=== PATIENT | male | born 1935 | race Caucasian/White ===

== ENCOUNTER 2016-11-29 19:35 | Inpatient (IN) | payer MEDICARE, BC ==
--- NOTE | 2016-11-29 20:16 | ER Document Report ---
ED Respiratory Problem - General Stated Complaint: SHORTNESS OF BREATH Mode of Arrival: Wheelchair Information source: Patient Notes: Patient presents complaining of shortness of breath for the past week. Patient states he has a history of multiple myeloma as well as MDS and was recently started on a new medication last week to decrease his iron levels. Patient states that he feels that his symptoms are related to this medication. Patient did call his doctor's office yesterday and was advised to stop the medication. Patient's last dose of the medicine was on . Patient denies any cough, chest pain, abdominal pain or back pain. Patient denies any fever. Patient does complain of some nausea with dry heaving. Patient denies a previous history of CHF. Patient has a sat monitor at home and reports that his oxygen saturation was 88% at home. Patient was given oxygen via nasal cannula by nurse , oxygen saturation now up to 95%. TRAVEL OUTSIDE OF THE [place] IN LAST 30 DAYS: No - HPI Patient complains to provider of: Short of breath. No: Chest pain, CHF Onset: Last week Duration: Worse/persistent Quality of pain: No pain Context: denies: Hx CHF, Recent immobilization, Smoker Associated symptoms: Ankle/leg swelling, Orthopnea, Short of breath. denies: Anxiety, Bloody cough, Chest pain/discomfort, Cough, Fever Similar symptoms previously: No Recently seen / treated by doctor: No - Related Data Allergies/Adverse Reactions: No Known Allergies Allergy (Unverified 08/08/11 04:03) Home Medications: Current Home Medications Furosemide [Lasix] 40 mg PO DAILY 11/30/16 [History] Tramadol HCl [Ultram 50 mg Tablet] 50 mg PO Q6HP PRN 11/30/16 [History] Past Medical History - General Information source: Patient - Social History Smoking Status: Never Smoker Frequency of alcohol use: None Drug Abuse: None Lives with: Spouse/Significant other Family History: Malignancy - Medical History Medical History: Other - MDS, multiple myeloma - Past Medical History Cardiac Medical History: Reports: Hx Hypertension Denies: Hx Congestive Heart Failure, Hx DVT, Hx Heart Attack, Hx Hypercholesterolemia, Hx Pulmonary Embolism Pulmonary Medical History: Reports: Hx Asthma, Hx Pneumonia, Hx Sleep Apnea, Hx Tuberculosis Neurological Medical History: Denies: Hx Seizures Endocrine Medical History: Reports: Hx Hypothyroidism. Denies: Hx Diabetes Mellitus Type 1, Hx Diabetes Mellitus Type 2, Hx Hyperthyroidism Malignancy Medical History: Reports Hx Skin Cancer - Status post excision of melanoma from his forehead., Reports Other - Multiple myeloma, MDS GI Medical History: Denies: Hx Cirrhosis, Hx Gastroesophageal Reflux Disease, Hx Hepatitis Musculoskeltal Medical History: Reports Hx Arthritis Skin Medical History: Denies Hx Eczema, Denies Hx Psoriasis Psychiatric Medical History: Denies: Hx Depression Infectious Medical History: Denies: Hx Hepatitis Past Surgical History: Reports: Other - Melanoma skin cancer removed - Immunizations Hx Diphtheria, Pertussis, Tetanus Vaccination: Yes - 05/10/05 Hx Pneumococcal Vaccination: 05/10/05 Review of Systems - Review of Systems Constitutional: No symptoms reported EENT: Other - Patient reports decreased hearing Cardiovascular: Orthopnea. denies: Chest pain Respiratory: Short of breath. denies: Cough Gastrointestinal: Nausea. denies: Abdominal pain, Diarrhea, Vomiting Genitourinary: No symptoms reported. denies: Dysuria, Flank pain Male Genitourinary: No symptoms reported Musculoskeletal: No symptoms reported. denies: Back pain, Neck pain Skin: No symptoms reported Hematologic/Lymphatic: No symptoms reported Neurological/Psychological: No symptoms reported Physical Exam - Vital signs Vitals: Pulse Ox 94 11/29/16 19:37 - General General appearance: Appears well, Alert In distress: None - HEENT Head: Normocephalic, Atraumatic Eyes: Normal Conjunctiva: Normal Nasal: Normal Mouth/Lips: Normal Mucous membranes: Normal Pharynx: Normal Neck: Normal, Supple. No: Lymphadenopathy - Respiratory Respiratory status: No respiratory distress Chest status: Nontender Breath sounds: Rales - bilat lower lobes Chest palpation: Normal - Cardiovascular Rhythm: Regular Heart sounds: S1 appreciated, S2 appreciated Murmur: No - Abdominal Inspection: Caput medussa - mild, Morbidly Obese, Other - ventral hernia Distension: Distended Bowel sounds: Normal Tenderness: Nontender Organomegaly: No organomegaly - Back Back: Normal, Nontender. No: CVA tenderness, Vertebra tenderness - Extremities General upper extremity: Normal inspection, Normal strength General lower extremity: Edema - 2+ bilat LE - Neurological Neuro grossly intact: Yes Cognition: Normal Abdifatah Coma Scale Eye Opening: Spontaneous [place] Coma Scale Verbal: Oriented Abdifatah Coma Scale Motor: Obeys Commands [place] Coma Scale Total: 15 - Psychological Associated symptoms: Normal affect, Normal mood - Skin Skin Temperature: Warm Skin Moisture: Dry Skin Color: Normal Course - Re-evaluation Re-evalutation: 11/29/16 21:[address] Gurpreet ambrocio patient presentation and management, recommends adding CTA and consultation with Dr. Bryan Consulted with Dr. Bryan who advises ordering iron panel as well as reticular site count and transfuse patient 2 units of packed red blood cells. Recommends giving patient Lasix 20 mg IV after his first unit of packed cells and advises that this patient will need admitted and states that the hospital skin consult him to evaluate the patient in the morning. 11/29/16 21:[address] Naylor who agrees to accept patient for admission. Advises ordering cefepime as well as vancomycin in addition to blood culture and urine cultures on patient. Discussed with Dr. Naylor the need for the order for the IV Lasix 20 mg after his first unit of packed red blood cells are infuse. - Vital Signs Vital signs: Temp Pulse Resp BP Pulse Ox 98.2 F 108 H 22 H 145/58 H 95 11/30/16 03:07 11/30/16 03:07 11/30/16 03:07 11/30/16 03:07 11/30/16 03:07 - Laboratory Result Diagrams: 11/29/16 19:50 11/29/16 19:50 Laboratory results interpreted by me: 11/29/16 11/29/16 11/29/16 19:50 19:50 19:50 WBC 19.3 H RBC 2.13 L Hgb 6.3 L Hct 18.5 L RDW 15.9 H Plt Count 26 L* Band Neutrophils % 14 H Lymphocytes % (Manual) 4 L Metamyelocytes % 3 H Immature Leukocytes % 1 H Abs Neuts (Manual) 16.6 H Absolute Retic Potassium 3.5 L Chloride 95 L BUN 37 H Glucose 144 H Magnesium 1.5 L Ferritin Creatine Kinase < 20 L NT-Pro-B Natriuret Pep 1130 H Albumin 3.1 L Vitamin B12 Urine Nitrite Ur Leukocyte Esterase Urine Ascorbic Acid Crossmatch 11/29/16 11/29/16 11/29/16 19:50 19:50 19:50 WBC RBC Hgb Hct RDW Plt Count Band Neutrophils % Lymphocytes % (Manual) Metamyelocytes % Immature Leukocytes % Abs Neuts (Manual) Absolute Retic 0.021 L Potassium Chloride BUN Glucose Magnesium Ferritin 4430.00 H Creatine Kinase NT-Pro-B Natriuret Pep Albumin Vitamin B12 > 1000.0 H Urine Nitrite Ur Leukocyte Esterase Urine Ascorbic Acid Crossmatch See Detail 11/29/16 20:18 WBC RBC Hgb Hct RDW Plt Count Band Neutrophils % Lymphocytes % (Manual) Metamyelocytes % Immature Leukocytes % Abs Neuts (Manual) Absolute Retic Potassium Chloride BUN Glucose Magnesium Ferritin Creatine Kinase NT-Pro-B Natriuret Pep Albumin Vitamin B12 Urine Nitrite POSITIVE H Ur Leukocyte Esterase MODERATE H Urine Ascorbic Acid 40 H Crossmatch Labs- Last Values WBC 19.3 10^3/uL (4.0-10.5) H 11/29/16 19:50 RBC 2.13 10^6/uL (4.35-5.55) L 11/29/16 19:50 Hgb 6.3 g/dL (13.5-17.0) L 11/29/16 19:50 Hct 18.5 % (37.9-51.0) L 11/29/16 19:50 MCV 87 fl (80-97) 11/29/16 19:50 MCH 29.7 pg (27.0-33.4) 11/29/16 19:50 MCHC 34.2 g/dL (32.0-36.0) 11/29/16 19:50 RDW 15.9 % (11.5-14.0) H 11/29/16 19:50 Plt Count 26 10^3/uL (150-450) L* 11/29/16 19:50 Total Counted 100 11/29/16 19:50 Seg Neutrophils % Not Reportable 11/29/16 19:50 Seg Neuts % (Manual) 69 % (42-78) 11/29/16 19:50 Band Neutrophils % 14 % (3-5) H 11/29/16 19:50 Lymphocytes % Not Reportable 11/29/16 19:50 Lymphocytes % (Manual) 4 % (13-45) L 11/29/16 19:50 Atypical Lymphs % 2 % (0) 11/29/16 19:50 Monocytes % Not Reportable 11/29/16 19:50 Monocytes % (Manual) 7 % (3-13) 11/29/16 19:50 Eosinophils % Not Reportable 11/29/16 19:50 Eosinophils % (Manual) 0 % (0-6) 11/29/16 19:50 Basophils % Not Reportable 11/29/16 19:50 Basophils % (Manual) 0 % (0-2) 11/29/16 19:50 Metamyelocytes % 3 % (0) H 11/29/16 19:50 Immature Leukocytes % 1 % (0) H 11/29/16 19:50 Absolute Neutrophils Not Reportable 11/29/16 19:50 Abs Neuts (Manual) 16.6 10^3/uL (1.7-8.2) H 11/29/16 19:50 Absolute Lymphocytes Not Reportable 11/29/16 19:50 Abs Lymphs (Manual) 1.2 10^3/uL (0.5-4.7) 11/29/16 19:50 Absolute Monocytes Not Reportable 11/29/16 19:50 Abs Monocytes (Manual) 1.4 10^3/uL (0.1-1.4) 11/29/16 19:50 Absolute Eosinophils Not Reportable 11/29/16 19:50 Absolute Eos (Manual) 0.0 10^3/uL (0.0-0.6) 11/29/16 19:50 Absolute Basophils Not Reportable 11/29/16 19:50 Abs Basophils (Manual) 0.0 10^3/uL (0.0-0.2) 11/29/16 19:50 Nucleated RBCs 1 /100 WBC (0) 11/29/16 19:50 Dohle Bodies PRESENT 11/29/16 19:50 Large Platelets PRESENT 11/29/16 19:50 Platelet Comment DECREASED 11/29/16 19:50 Polychromasia 1+ 11/29/16 19:50 Poikilocytosis SLIGHT 11/29/16 19:50 Anisocytosis SLIGHT 11/29/16 19:50 Tear Drop Cells SLIGHT 11/29/16 19:50 Ovalocytes 1+ 11/29/16 19:50 Retic Count (auto) 0.97 % (0.66-2.85) 11/29/16 19:50 Absolute Retic 0.021 10^6/uL (0.028-0.122) L 11/29/16 19:50 Sodium 138.8 mmol/L (137-145) 11/29/16 19:50 Potassium 3.5 mmol/L (3.6-5.0) L 11/29/16 19:50 Chloride 95 mmol/L (98-107) L 11/29/16 19:50 Carbon Dioxide 29 mmol/L (22-30) 11/29/16 19:50 Anion Gap 15 (5-19) 11/29/16 19:50 BUN 37 mg/dL (7-20) H 11/29/16 19:50 Creatinine 1.02 mg/dL (0.52-1.25) 11/29/16 19:50 Est GFR ( Amer) > 60 (>60) 11/29/16 19:50 Est GFR (Non-Af Amer) > 60 (>60) 11/29/16 19:50 Glucose 144 mg/dL (75-110) H 11/29/16 19:50 Lactic Acid 0.9 mmol/L (0.7-2.1) 11/29/16 21:55 Calcium 8.4 mg/dL (8.4-10.2) 11/29/16 19:50 Magnesium 1.5 mg/dL (1.6-2.3) L 11/29/16 19:50 Iron 146.5 ug/dL (49-181) 11/29/16 19:50 TIBC 304 ug/dL (250-450) 11/29/16 19:50 % Saturation 48 % 11/29/16 19:50 Ferritin 4430.00 ng/mL (17.9-464.0) H 11/29/16 19:50 Total Bilirubin 0.8 mg/dL (0.2-1.3) 11/29/16 19:50 Direct Bilirubin 0.3 mg/dL (0.0-0.4) 11/29/16 19:50 Indirect Bilirubin Not Reportable 11/29/16 19:50 Neonat Total Bilirubin Not Reportable 11/29/16 19:50 AST 36 U/L (17-59) 11/29/16 19:50 ALT 43 U/L (21-72) 11/29/16 19:50 Alkaline Phosphatase 83 U/L (38-126) 11/29/16 19:50 Creatine Kinase < 20 U/L (55-170) L 11/29/16 19:50 CK-MB (CK-2) < 0.22 ng/mL (<4.55) 11/29/16 19:50 Troponin I < 0.012 ng/mL 11/29/16 19:50 NT-Pro-B Natriuret Pep 1130 pg/mL (<450) H 11/29/16 19:50 Total Protein 7.1 g/dL (6.3-8.2) 11/29/16 19:50 Albumin 3.1 g/dL (3.5-5.0) L 11/29/16 19:50 Vitamin B12 > 1000.0 pg/mL (239-931) H 11/29/16 19:50 Folate > 20.00 ng/mL (>2.76) 11/29/16 19:50 Urine Color YELLOW 11/29/16 20:18 Urine Appearance SLIGHTLY-CLOUDY 11/29/16 20:18 Urine pH 5.0 (5.0-9.0) 11/29/16 20:18 Ur Specific [place] 1.015 11/29/16 20:18 Urine Protein NEGATIVE mg/dL (NEGATIVE) 11/29/16 20:18 Urine Glucose (UA) NEGATIVE mg/dL (NEGATIVE) 11/29/16 20:18 Urine Ketones NEGATIVE mg/dL (NEGATIVE) 11/29/16 20:18 Urine Blood NEGATIVE (NEGATIVE) 11/29/16 20:18 Urine Nitrite POSITIVE (NEGATIVE) H 11/29/16 20:18 Urine Bilirubin NEGATIVE (NEGATIVE) 11/29/16 20:18 Urine Urobilinogen NEGATIVE mg/dL (<2.0) 11/29/16 20:18 Ur Leukocyte Esterase MODERATE (NEGATIVE) H 11/29/16 20:18 Urine WBC (Auto) 43 /HPF 11/29/16 20:18 Urine RBC (Auto) 1 /HPF 11/29/16 20:18 Urine Bacteria (Auto) 3+ /HPF 11/29/16 20:18 Squamous Epi Cells Auto <1 /HPF 11/29/16 20:18 Urine Mucus (Auto) RARE /LPF 11/29/16 20:18 Urine Ascorbic Acid 40 (NEGATIVE) H 11/29/16 20:18 Blood Type A POSITIVE 11/29/16 19:50 Antibody Screen NEGATIVE 11/29/16 19:50 Crossmatch See Detail 11/29/16 19:50 - Diagnostic Test Radiology reviewed: Reports reviewed Discharge - Discharge Clinical Impression: MDS (myelodysplastic syndrome), Multiple myeloma, Thrombocytopenia Anemia Qualifiers: Anemia type: bone marrow failure Bone marrow failure anemia type: other bone marrow failure Qualified Code(s): D61.89 - Other specified aplastic anemias and other bone marrow failure syndromes Dyspnea Qualifiers: Dyspnea type: unspecified Qualified Code(s): R06.00 - Dyspnea, unspecified Disposition: ADMITTED INPATIENT Admitting Provider: Hospitalist Unit Admitted: [facility]
[2016-11-29 20:19] LABS: HEMATOCRIT 18.5 % (37.9-51.0); HGB HCT DIFFERENCE 0.4; MEAN CORPUSCULAR HEMOGLOBIN 29.7 pg (27.0-33.4); MEAN CORPUSCULAR HGB CONC 34.2 g/dL (32.0-36.0); MEAN CORPUSCULAR VOLUME 87 fl (80-97); RED BLOOD COUNT 2.13 10^6/uL (4.35-5.55); RED CELL DISTRIBUTION WIDTH 15.9 % (11.5-14.0); WHITE BLOOD COUNT 19.3 10^3/uL (4.0-10.5)
[2016-11-29 20:30] LABS: ALANINE AMINOTRANSFERASE 43 U/L (21-72); ALBUMIN 3.1 g/dL (3.5-5.0); ALKALINE PHOSPHATASE 83 U/L (38-126); ANION GAP 15 (5-19); ASPARTATE AMINO TRANSFERASE 36 U/L (17-59); BILIRUBIN,DIRECT 0.3 mg/dL (0.0-0.4); BILIRUBIN,TOTAL 0.8 mg/dL (0.2-1.3); BLOOD UREA NITROGEN 37 mg/dL (7-20); CALCIUM 8.4 mg/dL (8.4-10.2); CARBON DIOXIDE 29 mmol/L (22-30); CHLORIDE 95 mmol/L (98-107); CREATININE RESULT 1.02 mg/dL (0.52-1.25); GLUCOSE 144 mg/dL (75-110); MAGNESIUM 1.5 mg/dL (1.6-2.3); POTASSIUM 3.5 mmol/L (3.6-5.0); SODIUM 138.8 mmol/L (137-145); TOTAL PROTEIN 7.1 g/dL (6.3-8.2)
[2016-11-29 20:33] LABS: CREATINE KINASE < 20 U/L (55-170)
[2016-11-29 20:35] LABS: HEMOGLOBIN 6.3 g/dL (13.5-17.0)
[2016-11-29 20:39] LABS: BASOPHILS % (MANUAL) 0 % (0-2); EOSINOPHILS % (MANUAL) 0 % (0-6); LYMPHOCYTES % (MANUAL) 4 % (13-45); NUCLEATED RED BLOOD CELLS 1 /100 WBC (0); TOTAL CELLS COUNTED 100
[2016-11-29 20:43] LABS: CREATINE KINASE MB < 0.22 ng/mL (<4.55); TROPONIN I < 0.012 ng/mL
[2016-11-29 20:46] LABS: APPEARANCE,URINE SLIGHTLY-CLOUDY; BILIRUBIN,URINE NEGATIVE (NEGATIVE); GLUCOSE, URINE NEGATIVE (NEGATIVE); KETONES,URINE NEGATIVE (NEGATIVE); LEUKOCYTE ESTERASE,URINE MODERATE (NEGATIVE); NITRITE,URINE POSITIVE (NEGATIVE); PROTEIN,URINE NEGATIVE (NEGATIVE); URINE SPECIFIC GRAVITY 1.015; UROBILINOGEN,URINE NEGATIVE mg/dL (<2.0)
[2016-11-29 20:47] LABS: ANISOCYTOSIS SLIGHT; OVALOCYTES 1+; POIKILOCYTOSIS SLIGHT; POLYCHROMASIA 1+; TEAR DROP CELLS SLIGHT
[2016-11-29 20:49] LABS: BAND NEUTROPHILS % (MANUAL) 14 % (3-5)
[2016-11-29] MEDS ORDERED: NORMAL SALINE 250 ML IV PRN (21:10)
[2016-11-29] MEDS ORDERED: MAGNESIUM SULFATE/D5W 100 ML IV ONE (21:11)
[2016-11-29] MEDS ORDERED: VANCOMYCIN HCL INJ 1000 MG VIAL IV ONE (21:20)
[2016-11-29] MEDS ORDERED: CEFEPIME 2 GM/D5W RTU 50 ML IV ONE (21:21)
[2016-11-29 22:38] LABS: FOLATE > 20.00 ng/mL (>2.76)
[2016-11-29] MEDS ORDERED: ACETAMINOPHEN 325 MG TABLET PO PRN (23:00)
[2016-11-29] MEDS ORDERED: IPRATROPIUM/ALBUTEROL 0.5-2.5 MG/3 ML AMPUL NEB PRN (23:00)
[2016-11-29] MEDS ORDERED: POTASSIUM CHLORIDE 20 MEQ/15 ML UDCUP PO ONE (23:05)
[2016-11-29] MEDS ORDERED: VANCOMYCIN HCL 0 MG in DEXTROSE 5%-WATER 250 ML IV NR (23:15)
--- NOTE | 2016-11-29 23:32 | PDOC H&P ---
History of Present Illness Admission Date/PCP: 11/29/16 21:32 STEFAN RANGEL MD Heme/Onc Dr. Timothy Simon, DAREN Uro Dr. Maldonado Patient complains of: SOB History of Present Illness: ROSMERY PARRISH is a 81 year old male, with a fairly complicated medical history, who presents to the emergency room for evaluation of above complaint. Shortness of breath worse with much of any activity. Patient has been discussed with emergency room nurse practitioner who evaluated the patient. Patient has underlying asthma, not COPD, multiple myeloma, myelofibrosis, and myelodysplastic syndrome, started approximately a week ago on medication to prevent iron overload. Patient receives weekly blood transfusions. According to the nurse practitioner who discussed the patient with Dr. Bryan, our on- call oncologist, likely this medication as a source of his shortness of breath. According to patient, this new medication was stopped after only a dose or 2. He's had nausea and occasional dry heaves, but no fever or chills, cough, diarrhea or dysuria, chest or abdominal pain. Per nurse practitioner discussion with Dr. Bryan, orders have been placed to transfuse 2 units of packed cells, with 20 mg of IV Lasix after the first unit of packed cells.. Laboratory results are listed in [email or web address] and are reviewed. X-ray summary results are listed below, with full report(s) reviewed. . EKG reviewed. And compared to a tracing from June 15 of last year. Social history/personal habits: . Retired. Has children. No use of alcohol tobacco or illicit drugs. Allergies/adverse reactions NKDA. Home medications Home medications initially autopopulated into [employer] may not accurately reflect patient's true medications, dosages, and/or frequencies. fire control technician to reconcile medications. Unfortunately, patient uncertain of all his medications/dosages/frequencies. REVIEW OF SYSTEMS: Constitutional: No fever or chills. Eyes: Wears glasses. ENT: No swallowing problems or complaints. Partial hearing loss. Pulmonary: See history and present illness. Cardiovascular: No current complaints, including chest pain. Gastrointestinal: See history and present illness. Skin: No current complaints, including rashes. Hematologic: Easy bruising. Neurologic: No current complaints, including numbness or tingling. Musculoskeletal: Joint pain from arthritis. Psychiatric: No current complaints, including anxiety or depression. Anxiety depression; denies suicidal or homicidal ideation. Endocrine: No current complaints, including polyuria. Genitourinary: No current complaints, including dysuria. PHYSICAL EXAMINATION: 5 feet 11 inches tall. 136.1 kg. BMI 41.8 kg/m. Blood pressure 126/60. Pulse 94 and regular. 98% saturation on 3 L oxygen per nasal cannula of note, patient has home O2 only for CPAP, which he wears at night. Respirations are 21 and unlabored. Temperature is not recorded on the chart; skin feels normothermic. Morbidly obese otherwise well-developed male who appears perhaps a bit younger than his stated age. Pleasant awake alert and cooperative. No obvious distress other than perhaps mildly anxious. No agitation. is present at his side; patient approves. Skin is warm and dry. No grossly obvious evidence of rash in areas of skin examined. No subcutaneous nodules palpated. ENT: Perhaps Mildly hard of hearing to normal conversation. Tongue midline on protrusion pink and slightly tacky. Eyes: No scleral icterus. Pupils equal and reactive to light at 4 mm. pale conjunctivae. Neck is supple and nontender to gentle active range of motion and palpation. Midline trachea. No palpable thyroid nodule mass enlargement or tenderness. Lymphatic: No palpable cervical or clavicular nodes. Neck and lymphatic exams limited by patient body habitus. Psychiatric: Reasonable insight into acute and chronic medical issues. Oriented to time location and why here. Lungs: Auscultation reveals clear and equal breath sounds bilaterally. No use of accessory respiratory muscles. Cardiovascular: Heart regular rate and rhythm, without gallop murmur or rub. No carotid or abdominal aortic bruits. Mild bilateral symmetric slightly pitting ankle and pedal edema. Faintly palpable dorsalis pedis pulses. Abdomen: soft, obese, nontender with positive bowel sounds. Unable to adequately evaluate abdomen for masses or organomegaly due to body habitus. Extremities: Feet are warm and dry. No calf tenderness to compression. No grossly obvious visual evidence of calf swelling. Gentle manipulation of lower extremities fails to reveal any obvious evidence of injury or instability to knees hips or ankles. Neurologic: Moves upper extremities grossly normally. Patellar reflexes absent. Absent Babinski. Light touch is intact at feet. Dorsiflexion and plantarflexion of feet 5 / 5 and symmetric. Past Medical History Cardiac Medical History: Reports: Hypertension Denies: Congestive Heart Failure, DVT, Myocardial Infarction, Hyperlipidema, Pulmonary Embolism Pulmonary Medical History: Reports: Asthma, Pneumonia, Sleep Apnea - 4 L oxygen ; variable pressure setting, per patient., Tuberculosis - History of Denies: Chronic Obstructive Pulmonary Disease (COPD) EENT Medical History: Reports: Eyes - Glasses, Ears - Partial hearing loss Denies: Throat Neurological Medical History: Denies: Hemorrhagic CVA, Ischemic CVA, Seizures Endocrine Medical History: Reports: Hypothyroidism Denies: Diabetes Mellitus Type 1, Diabetes Mellitus Type 2, Hyperthyroidism Renal/ Medical History: Reports: Other - Prostate cancer, status post external radiation treatment of same. Denies: Chronic Kidney Disease Malignancy Medical History: Reports: Skin Cancer - Status post excision of melanoma from his forehead., Other - Prostate cancer, status post external radiation treatment of same. GI Medical History: Denies: Cirrhosis, Gastroesophageal Reflux Disease, Hepatitis, Peptic Ulcer Disease Musculoskeltal Medical History: Reports: Arthritis Skin Medical History: Denies: Eczema, Psoriasis Psychiatric Medical History: Denies: Alcohol Dependency, Depression, General Anxiety Disorder, Substance Abuse, Tobacco Dependency Hematology: Reports: Anemia Infectious Medical History: Denies: Clostridium Difficile, Hepatitis B, Hepatitis C, Methicillin- Resistant Staph Aureus Past Surgical History Past Surgical History: Reports: Other - Excision of melanoma from his forehead Social History Information Source: Patient, Emergency Med Personnel, [facility] Records Lives with: Spouse/Significant other Smoking Status: Unknown if Ever Smoked Frequency of Alcohol Use: None Hx Recreational Drug Use: No Drugs: None Hx Prescription Drug Abuse: No - Advance Directive Resuscitation Status: Do Not Resuscitate - Implications of DO NOT RESUSCITATE/ DO NOT INTUBATE status discussed with patient. Discussed in layperson's terms. Implications understood. Patient is the health care decision maker. Patient conversation is lucid and appropriate. Patient desires DO NOT RESUSCITATE/DO NOT INTUBATE status. Will honor patient wishes. Surrogate healthcare decision maker:: Family History Family History: Malignancy Parental Family History Reviewed: Yes - mother of congestive heart failure ; father of stomach and colon cancer Children Family History Reviewed: Yes - Healthy Sibling(s) Family History Reviewed.: Yes - Healthy Medication/Allergy Home Medications: Beta-Carotene(A) W-C & E [E-400 C-500 & Beta Carotene] 1 each PO DAILY 08/08/11 Ca Carbonate/Vitamin D2/Soyb [Calcium 600 with Soy Caplet] 1 each PO DAILY 08/08 Cyclobenzaprine HCl [Flexeril 10 mg Tablet] 10 mg PO TID PRN 08/08/11 Finasteride 5 mg PO DAILY 08/08/11 Glucosamine HCl/MSM [Glucosamine MSM Liquid] 480 ml PO DAILY 08/08/11 Latanoprost [Xalatan 0.005% Oph Soln 2.5 ml] 1 drop QHS 08/08/11 Levothyroxine Sodium [Synthroid 0.1 mg Tablet] 100 mcg PO DAILY 08/08/11 Metoclopramide HCl 5 mg PO TID 08/08/11 Metoprolol Tartrate [Lopressor 25 mg Tablet] 25 mg PO BID 08/08/11 Multivitamins W-Minerals/Lut [Mature Adult Century Tablet] 1 each PO DAILY 08/08 [place]-3 Fatty Acids/Fish Oil [[place] 3 Fish Oil Softgel] 1 each PO DAILY Omeprazole [Prilosec 10 mg Capsule] 10 mg PO DAILY 08/08/11 Spironolact/Hydrochlorothiazid [Aldactazide 25-25 Tablet] 1 each PO DAILY Tamsulosin HCl [Flomax 0.4 mg Cap.sr] 0.4 mg PO QHS 08/08/11 Timolol Maleate [Timoptic 0.5% Oph Soln 5 ml] 1 drop BID 08/08/11 Verapamil HCl 240 mg PO BID 08/08/11 Brimonidine Tartrate [Alphagan 0.2% Oph Soln 5 ml] 1 applic OU BID 06/15/16 Fluticasone/Vilanterol [Breo Ellipta 200-25 Mcg INH] 1 dose IH DAILY 06/15/16 Prednisone 10 mg PO Q48HS 06/15/16 Acetaminophen [Tylenol 325 mg Tablet] 650 mg PO Q4HP PRN tablet 06/16/16 Levofloxacin [Levaquin 750 mg Tablet] 750 mg PO DAILY #5 tablet 06/16/16 Allergies/Adverse Reactions: No Known Allergies Allergy (Unverified 08/08/11 04:03) Physical Exam Vital Signs: Temp Pulse Resp BP Pulse Ox 18 125/76 94 11/29/16 20:00 11/29/16 19:43 11/29/16 20:00 Intake & Output 11/28/16 11/29/16 11/30/16 00:59 00:59 00:59 Weight 136.078 kg Results Laboratory Results: 11/29/16 21:55 Lactic Acid 0.9 Impressions: Chest X-Ray 11/29/16 19:37 IMPRESSION: NO ACUTE RADIOGRAPHIC FINDING IN THE CHEST. NO SIGNIFICANT CHANGE FROM PRIOR STUDY. Chest/Abdomen CTA 11/29/16 21:04 IMPRESSION: NO PULMONARY EMBOLI. NO ACUTE AORTIC INJURY. TRACE LEFT PLEURAL EFFUSION. MARKED SPLENOMEGALY WITH AREAS OF LOW ATTENUATION CONCERNING FOR INFARCTION. CORRELATE WITH PHYSICAL EXAM FOR EVIDENCE OF LEFT UPPER QUADRANT PAIN. Assessment & Plan - Diagnosis (1) Abnormal CT of the abdomen Is this a current diagnosis for this admission?: YesPlan: Related to spleen. Abdomen completely nontender to palpation; patient also denies any abdominal pain. Surgery consult. (2) Dyspnea Qualifiers: Dyspnea type: unspecified Qualified Code(s): R06.00 - Dyspnea, unspecified Is this a current diagnosis for this admission?: YesPlan: Reportedly secondary to medication recently started for iron overload, which has been stopped. (3) Hypokalemia Is this a current diagnosis for this admission?: YesPlan: Potassium replacement with follow-up chemistry. (4) Hypomagnesemia Is this a current diagnosis for this admission?: YesPlan: Magnesium replacement with follow-up chemistry. (5) UTI (urinary tract infection) Qualifiers: Urinary tract infection type: site unspecified Is this a current diagnosis for this admission?: YesPlan: Blood and urine cultures. Cefepime and intravenous vancomycin. Pharmacy to assist with vancomycin dosing. I have strongly encouraged patient not to get out of bed without notifying staff , to avoid a fall with injury. Knee high SCDs for DVT prophylaxis; with underlying thrombocytopenia, will forego Lovenox or heparin at this point in time. Impression and plans were discussed with patient, , both of whom concur. Time spent in evaluation and management of patient: 62 minutes. (6) Anemia Qualifiers: Anemia type: other cause Other causes of anemia: chronic disease, neoplastic Qualified Code(s): D63.0 - Anemia in neoplastic disease Is this a current diagnosis for this admission?: YesPlan: To receive 2 units packed cells. Hematology consult. (7) Thrombocytopenia Is this a current diagnosis for this admission?: YesPlan: Follow-up CBC with differential. Hematology consult. (8) DNR (do not resuscitate) Is this a current diagnosis for this admission?: Yes (9) Hypothyroid Qualifiers: Hypothyroidism type: unspecified Qualified Code(s): E03.9 - Hypothyroidism, unspecified Is this a current diagnosis for this admission?: YesPlan: TSH pending. Resume home medications as appropriate once these have been determined and reviewed. (10) MDS (myelodysplastic syndrome) Is this a current diagnosis for this admission?: Yes (11) Multiple myeloma Qualifiers: Multiple myeloma remission status: unspecified Qualified Code(s): C90.00 - Multiple myeloma not having achieved remission Is this a current diagnosis for this admission?: Yes (12) Myelofibrosis Is this a current diagnosis for this admission?: Yes (13) XIN on CPAP Is this a current diagnosis for this admission?: YesPlan: CPAP daily at bedtime. - Inpatient Certification Based on my medical assessment, after consideration of the patient's comorbidities, presenting symptoms, or acuity I expect that the services needed warrant INPATIENT care.: Yes I certify that my determination is in accordance with my understanding of Medicare's requirements for reasonable and necessary INPATIENT services [42 CFR 412.3e].: Yes Medical Necessity: Significant Comorbidiites Make Outpatient Treatment Too Risky , Need Close Monitoring Due to Risk of Patient Decompensation, Need for IV Antibiotics, Risk of Complication if Not Cared For in Hospital Post Hospital Care: D/C or Transfer Summary
[2016-11-30] MEDS ORDERED: VANCOMYCIN HCL INJ 1000 MG VIAL IV PRN (00:21)
[2016-11-30] MEDS ORDERED: VANCOMYCIN HCL 2,000 MG in DEXTROSE 5%-WATER 500 ML IV ONE (01:00)
[2016-11-30] MEDS ORDERED: MAGNESIUM SULFATE/D5W 1 GM/100 ML RTUPB IV ONE (01:30)
[2016-11-30] MEDS ORDERED: VANCOMYCIN HCL INJ 1000 MG VIAL ONE (01:41)
[2016-11-30] MEDS ORDERED: TRAMADOL HCL 50 MG TABLET PO PRN (07:41)
[2016-11-30 09:32] VITALS: BP 132/66
[2016-11-30] MEDS ORDERED: BRIMONIDINE TARTRATE 0.2% OPH SOLN 5 ML OU SCH ×2 (10:00→18:00)
[2016-11-30] MEDS ORDERED: DOCUSATE SODIUM 100 MG CAPSULE PO SCH (10:00)
[2016-11-30] MEDS ORDERED: VERAPAMIL HCL 240 MG TABLET.SA PO SCH ×2 (10:00→22:00)
[2016-11-30] MEDS ORDERED: FUROSEMIDE 40 MG TABLET PO SCH (10:00)
[2016-11-30] MEDS ORDERED: CEFEPIME HCL 2 GM in DEXTROSE 5%-WATER 50 ML IV SCH (10:00)
[2016-11-30] MEDS ORDERED: FLUTICASONE IH SCH (10:00)
[2016-11-30] MEDS ORDERED: VILANTEROL IH SCH (10:00)
[2016-11-30] MEDS ORDERED: LEVOTHYROXINE SODIUM 0.1 MG TABLET PO SCH (10:00)
[2016-11-30] MEDS ORDERED: CEFEPIME 2 GM/D5W RTU 50 ML IV SCH (10:00)
[2016-11-30] MEDS ORDERED: FINASTERIDE 5 MG TABLET PO SCH (10:00)
[2016-11-30] MEDS ORDERED: TIMOLOL MALEATE 0.5% OPH SOLN 5 ML OU SCH (10:00)
[2016-11-30] MEDS ORDERED: METOCLOPRAMIDE HCL 5 MG PO SCH (10:00)
[2016-11-30 10:06] LABS: HEMATOCRIT 22.3 % (37.9-51.0); HGB HCT DIFFERENCE 0.8; MEAN CORPUSCULAR HEMOGLOBIN 30.5 pg (27.0-33.4); MEAN CORPUSCULAR HGB CONC 34.6 g/dL (32.0-36.0); MEAN CORPUSCULAR VOLUME 88 fl (80-97); RED BLOOD COUNT 2.53 10^6/uL (4.35-5.55); RED CELL DISTRIBUTION WIDTH 15.5 % (11.5-14.0); WHITE BLOOD COUNT 20.3 10^3/uL (4.0-10.5)
[2016-11-30 10:10] LABS: ANION GAP 11 (5-19); BLOOD UREA NITROGEN 28 mg/dL (7-20); CALCIUM 8.4 mg/dL (8.4-10.2); CARBON DIOXIDE 31 mmol/L (22-30); CHLORIDE 99 mmol/L (98-107); GLUCOSE 197 mg/dL (75-110); POTASSIUM 3.5 mmol/L (3.6-5.0); SODIUM 140.5 mmol/L (137-145)
[2016-11-30 10:17] LABS: BAND NEUTROPHILS % (MANUAL) 13 % (3-5); BASOPHILS % (MANUAL) 0 % (0-2); EOSINOPHILS % (MANUAL) 0 % (0-6); LYMPHOCYTES % (MANUAL) 5 % (13-45); NUCLEATED RED BLOOD CELLS 1 /100 WBC (0); TOTAL CELLS COUNTED 100
[2016-11-30 10:21] LABS: ANISOCYTOSIS SLIGHT; HYPOCHROMASIA SLIGHT; POLYCHROMASIA SLIGHT; TOXIC GRANULATION SLIGHT
[2016-11-30 10:24] LABS: HEMOGLOBIN 7.7 g/dL (13.5-17.0)
[2016-11-30] MEDS: METOCLOPRAMIDE HCL 10 MG TABLET PO SCH ×2 (10:36→15:05)
--- NOTE | 2016-11-30 10:41 | PDOC CONSULTATION ---
Consultation Consult Date: 11/30/16 Attending physician:: JOSE RAND Consult reason:: Pancytopenia, CP, fatigue History of Present Illness Admission Date/PCP: 11/29/16 23:00 STEFAN RANGEL MD Patient complains of: CP, fatigue History of Present Illness: 81-year-old male with known history of multiple myeloma as well as MDS. He has required chronic transfusions, on average she is getting 1-2 units of packed red blood cells per week. His hemoglobin ranges usually in the 7-8 range, platelets usually range in the 20-30 range. He has been getting most of his transfusions and [place]. He has been hospitalized here in the past as well. Recently he began taking a drug for iron overload called Jadenu, he was taking 5 tablets per day. He had been on that for about 4 days and soon after taking it he began having severe nausea as well as shortness of breath and chest pain. Upon presentation here he had hemoglobin in the 6 range platelets 26. He was admitted for blood transfusion. He's feeling much better today. He is seeing Dr. Mcneal, hematology oncology and [place], they have a [place] office as well and he is to be seen in that office tomorrow. Past Medical History Cardiac Medical History: Reports: Hypertension Denies: Congestive Heart Failure, DVT, Myocardial Infarction, Hyperlipidema, Pulmonary Embolism Pulmonary Medical History: Reports: Asthma, Pneumonia, Sleep Apnea, Tuberculosis Denies: Chronic Obstructive Pulmonary Disease (COPD) EENT Medical History: Reports: Eyes - Glasses, Ears - Partial hearing loss Denies: Throat Neurological Medical History: Denies: Hemorrhagic CVA, Ischemic CVA, Seizures Endocrine Medical History: Reports: Hypothyroidism Denies: Diabetes Mellitus Type 1, Diabetes Mellitus Type 2, Hyperthyroidism Renal/ Medical History: Reports: Other - Prostate cancer, status post external radiation treatment of same. Denies: Chronic Kidney Disease Malignancy Medical History: Reports: Skin Cancer - Status post excision of melanoma from his forehead., Other - Multiple myeloma, MDS GI Medical History: Denies: Cirrhosis, Gastroesophageal Reflux Disease, Hepatitis, Peptic Ulcer Disease Musculoskeltal Medical History: Reports: Arthritis Skin Medical History: Denies: Eczema, Psoriasis Psychiatric Medical History: Denies: Alcohol Dependency, Depression, General Anxiety Disorder, Substance Abuse, Tobacco Dependency Hematology: Reports: Anemia Infectious Medical History: Denies: Clostridium Difficile, Hepatitis B, Hepatitis C, Methicillin- Resistant Staph Aureus Past Surgical History Past Surgical History: Reports: Other - Melanoma skin cancer removed Social History Lives with: Spouse/Significant other Smoking Status: Never Smoker Frequency of Alcohol Use: None Hx Recreational Drug Use: No Drugs: None Hx Prescription Drug Abuse: No - Advance Directive Resuscitation Status: Do Not Resuscitate Family History Family History: Malignancy Parental Family History Reviewed: Yes Children Family History Reviewed: Yes Sibling(s) Family History Reviewed.: Yes Medication/Allergy Home Medications: Ca Carbonate/Vitamin D2/Soyb [Calcium 600 with Soy Caplet] 1 each PO DAILY 08/08 Cyclobenzaprine HCl [Flexeril 10 mg Tablet] 10 mg PO TID PRN 08/08/11 Finasteride 5 mg PO DAILY 08/08/11 Glucosamine HCl/MSM [Glucosamine MSM Liquid] 480 ml PO DAILY 08/08/11 Latanoprost [Xalatan 0.005% Oph Soln 2.5 ml] 1 drop QHS 08/08/11 Levothyroxine Sodium [Synthroid 0.1 mg Tablet] 100 mcg PO DAILY 08/08/11 Metoclopramide HCl 5 mg PO TID 08/08/11 Metoprolol Tartrate [Lopressor 25 mg Tablet] 25 mg PO BID 08/08/11 Multivitamins W-Minerals/Lut [Mature Adult Century Tablet] 1 each PO DAILY 08/08 [place]-3 Fatty Acids/Fish Oil [[place] 3 Fish Oil Softgel] 1 each PO DAILY Omeprazole [Prilosec 10 mg Capsule] 10 mg PO DAILY 08/08/11 Spironolact/Hydrochlorothiazid [Aldactazide 25-25 Tablet] 1 each PO DAILY Tamsulosin HCl [Flomax 0.4 mg Cap.sr] 0.4 mg PO QHS 08/08/11 Timolol Maleate [Timoptic 0.5% Oph Soln 5 ml] 1 drop BID 08/08/11 Verapamil HCl 240 mg PO BID 08/08/11 Brimonidine Tartrate [Alphagan 0.2% Oph Soln 5 ml] 1 applic OU BID 06/15/16 Fluticasone/Vilanterol [Breo Ellipta 200-25 Mcg INH] 1 dose IH DAILY 06/15/16 Furosemide [Lasix] 40 mg PO DAILY 11/30/16 Tramadol HCl [Ultram 50 mg Tablet] 50 mg PO Q6HP PRN 11/30/16 Allergies/Adverse Reactions: No Known Allergies Allergy (Unverified 08/08/11 04:03) Review of Systems Constitutional: ABSENT: chills, fever(s), headache(s), weight gain, weight loss Eyes: ABSENT: visual disturbances Ears: ABSENT: hearing changes Cardiovascular: ABSENT: chest pain, dyspnea on exertion, edema, orthropnea, palpitations Respiratory: ABSENT: cough, hemoptysis Gastrointestinal: ABSENT: abdominal pain, constipation, diarrhea, hematemesis, hematochezia, nausea, vomiting Genitourinary: ABSENT: dysuria, hematuria Musculoskeletal: ABSENT: joint swelling Integumentary: ABSENT: rash, wounds Neurological: ABSENT: abnormal gait, abnormal speech, confusion, dizziness, focal weakness, syncope Psychiatric: ABSENT: anxiety, depression, homidical ideation, suicidal ideation Endocrine: ABSENT: cold intolerance, heat intolerance, polydipsia, polyuria Hematologic/Lymphatic: ABSENT: easy bleeding, easy bruising Physical Exam Vital Signs: Temp Pulse Resp BP Pulse Ox 98.2 F 101 H 20 132/66 H 96 11/30/16 09:25 11/30/16 09:25 11/30/16 09:25 11/30/16 09:25 11/30/16 09:25 Intake & Output 11/29/16 11/30/16 12/01/16 06:59 06:59 06:59 Intake Total 885 300 Output Total 200 Balance 685 300 Weight 137.5 kg General appearance: PRESENT: no acute distress, well-developed, well-nourished Head exam: PRESENT: atraumatic, normocephalic Eye exam: PRESENT: conjunctiva pink, EOMI, PERRLA. ABSENT: scleral icterus Ear exam: PRESENT: normal external ear exam Mouth exam: PRESENT: moist, tongue midline Neck exam: ABSENT: carotid bruit, JVD, lymphadenopathy, thyromegaly Respiratory exam: PRESENT: clear to auscultation inés. ABSENT: rales, rhonchi, wheezes Cardiovascular exam: PRESENT: RRR. ABSENT: diastolic murmur, rubs, systolic murmur Pulses: PRESENT: normal dorsalis pedis pul Vascular exam: PRESENT: normal capillary refill GI/Abdominal exam: PRESENT: normal bowel sounds, soft. ABSENT: distended, guarding, mass, organolmegaly, rebound, tenderness Rectal exam: PRESENT: deferred Extremities exam: PRESENT: full ROM. ABSENT: calf tenderness, clubbing, pedal edema Neurological exam: PRESENT: alert, awake, oriented to person, oriented to place , oriented to time, oriented to situation, CN II-XII grossly intact. ABSENT: motor sensory deficit Psychiatric exam: PRESENT: appropriate affect, normal mood. ABSENT: homicidal ideation, suicidal ideation Skin exam: PRESENT: dry, intact, warm. ABSENT: cyanosis, rash Results Laboratory Results: 11/30/16 09:38 11/30/16 09:38 11/30/16 11/30/16 09:38 09:38 WBC 20.3 H RBC 2.53 L Hgb 7.7 L Hct 22.3 L MCV 88 MCH 30.5 MCHC 34.6 RDW 15.5 H Plt Count 23 L* Seg Neutrophils % Not Reportable Lymphocytes % Not Reportable Monocytes % Not Reportable Eosinophils % Not Reportable Basophils % Not Reportable Absolute Neutrophils Not Reportable Absolute Lymphocytes Not Reportable Absolute Monocytes Not Reportable Absolute Eosinophils Not Reportable Absolute Basophils Not Reportable Sodium 140.5 Potassium 3.5 L Chloride 99 Carbon Dioxide 31 H Anion Gap 11 BUN 28 H Creatinine 0.90 Est GFR ( Amer) > 60 Est GFR (Non-Af Amer) > 60 Glucose 197 H Calcium 8.4 Magnesium 2.0 Impressions: Chest X-Ray 11/29/16 19:37 IMPRESSION: NO ACUTE RADIOGRAPHIC FINDING IN THE CHEST. NO SIGNIFICANT CHANGE FROM PRIOR STUDY. Chest/Abdomen CTA 11/29/16 21:04 IMPRESSION: NO PULMONARY EMBOLI. NO ACUTE AORTIC INJURY. TRACE LEFT PLEURAL EFFUSION. MARKED SPLENOMEGALY WITH AREAS OF LOW ATTENUATION CONCERNING FOR INFARCTION. CORRELATE WITH PHYSICAL EXAM FOR EVIDENCE OF LEFT UPPER QUADRANT PAIN. Assessment & Plan - Diagnosis (1) Anemia Qualifiers: Anemia type: other cause Other causes of anemia: chronic disease, neoplastic Qualified Code(s): D63.0 - Anemia in neoplastic disease Is this a current diagnosis for this admission?: YesPlan: Severe anemia secondary to MDS, myeloma, also probably secondary to some part due to drug effect. The iron chelator that he was on does have myelosuppression as a side effect. But he was only on it for 4 days so unsure if that really caused a major drop. He has received 2 units of packed red blood cells with an appropriate increase in hemoglobin. He is can have close follow-up with his medical illustrator tomorrow. I believe from a hematologic/ oncologic standpoint he could be discharged today as long as he is feeling okay and can get up and move around appropriately, his blood and platelets seem to be in a stable range for him. (2) Thrombocytopenia Is this a current diagnosis for this admission?: YesPlan: Secondary to MDS, myeloma, possibly drug effect as we mentioned in the anemia section. Platelet is stable, no need for transfusion today. 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 He is off the drug now, and will remain off until he sees his medical illustrator. I discussed with him at length today about that drug, we discussed that it could also be myelotoxic, he was on 5 tablets a day and it may be better if they were to try it again to do only one tablet per day and then slowly increase over time. - Time Time Spent: Greater than 70 Minutes Critical Time spent with patient: 35 or more minutes Anticipated discharge: Home Within: within 24 hours - Inpatient Certification Based on my medical assessment, after consideration of the patient's comorbidities, presenting symptoms, or acuity I expect that the services needed warrant INPATIENT care.: Yes I certify that my determination is in accordance with my understanding of Medicare's requirements for reasonable and necessary INPATIENT services [42 CFR 412.3e].: Yes Medical Necessity: Risk of Complication if Not Cared For in Hospital
[2016-11-30] MEDS ORDERED: VERAPAMIL HCL 240 MG TABLET.SA PO ONE (11:00)
--- NOTE | 2016-11-30 15:17 | PDOC DISCHARGE SUMMARY ---
General - Admit/Disc Date/PCP Admission Date/Primary Care Provider: 11/29/16 23:00 STEFAN RANGEL MD Discharge Date: 11/30/16 - Discharge Diagnosis (1) Dyspnea Is this a current diagnosis for this admission?: YesSummary: Most likely due to significant anemia hemoglobin of 6.3. due to MM He was transfused 2 units packed red blood cells. He felt much improved afterwards. Dr. Bryan, oncologist, consulted on the patient and feels he is safe to go home.. (2) UTI (urinary tract infection) Is this a current diagnosis for this admission?: YesSummary: Patient has gram-negative rods in his urine and positive nitrates. Initially was treated with IV broad-spectrum antibiotics. These were switched to Cipro 500 mg twice a day and follow-up with his oncologist tomorrow. 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 Is this a current diagnosis for this admission?: YesSummary: His oncologist will continue to follow (6) MDS (myelodysplastic syndrome) Is this a current diagnosis for this admission?: Yes (7) Multiple myeloma Is this a current diagnosis for this admission?: YesSummary: His oncologist will follow (8) Morbid obesity with BMI of 40.0-44.9, adult Is this a current diagnosis for this admission?: Yes - Additional Information Resuscitation Status: Do Not Resuscitate Discharge Diet: Regular Discharge Activity: Activity As Tolerated, Balance Activity w/Rest Home Medications: Ascorbate Calcium [Vitamin C] 500 mg PO DAILY 11/30/16 Brimonidine Tartrate [Alphagan 0.2% Oph Soln 5 ml] 1 drop OU BID 11/30/16 Calcium Carbonate/Vitamin D3 [Calcium 600 + Vit D Tablet] 1 tab PO DAILY Ciprofloxacin HCl [Cipro 500 mg Tablet] 500 mg PO BID #20 tablet 11/30/16 Cyclobenzaprine HCl [Flexeril 10 mg Tablet] 10 mg PO Q8HP PRN 11/30/16 Finasteride [Proscar 5 mg Tablet] 5 mg PO QPM 11/30/16 Fluticasone/Vilanterol [Breo Ellipta 200-25 Mcg INH] 1 puff IH QAM 11/30/16 Furosemide [Lasix] 40 mg PO DAILY 11/30/16 Glucosamine Sulfate/MSM [Glucosamine-MSM 500-400 mg Cap] 2 cap PO DAILY Latanoprost [Xalatan 0.005% Oph Soln 2.5 ml] 1 drop OU QHS 11/30/16 Levothyroxine Sodium [Synthroid 0.1 mg Tablet] 0.1 mg PO QAM 11/30/16 Metoclopramide HCl [Reglan] 5 mg PO TID 11/30/16 Metoprolol Tartrate [Lopressor 25 mg Tablet] 25 mg PO Q12 11/30/16 Multivitamin [Daily Multiple Vitamin] 1 tab PO DAILY 11/30/16 Omeprazole 20 mg PO QAM 11/30/16 Spironolact/Hydrochlorothiazid [Aldactazide 25-25 Tablet] 1 tab PO QAM 11/30/16 Tamsulosin HCl [Flomax 0.4 mg Cap.sr] 0.4 mg PO QPM 11/30/16 Timolol Maleate [Timoptic 0.5% Oph Soln 5 ml] 1 drop OU BID 11/30/16 Tramadol HCl [Ultram 50 mg Tablet] 50 mg PO Q6HP PRN 11/30/16 Verapamil HCl [Calan Sr 240 mg Tablet.sa] 240 mg PO Q12 11/30/16 History of Present Illness Patient complains of: Shortness of breath History of Present Illness: ROSMERY PARRISH is a 81 year old male, with a fairly complicated medical history, who presents to the emergency room for evaluation of above complaint. Shortness of breath worse with much of any activity. Patient has been discussed with emergency room nurse practitioner who evaluated the patient. Patient has underlying asthma, not COPD, multiple myeloma, myelofibrosis, and myelodysplastic syndrome, started approximately a week ago on medication to prevent iron overload. Patient receives weekly blood transfusions. According to the nurse practitioner who discussed the patient with Dr. Bryan, our on- call oncologist, likely this medication as a source of his shortness of breath. According to patient, this new medication was stopped after only a dose or 2. He's had nausea and occasional dry heaves, but no fever or chills, cough, diarrhea or dysuria, chest or abdominal pain. Per nurse practitioner discussion with Dr. Bryan, orders have been placed to transfuse 2 units of packed cells, with 20 mg of IV Lasix after the first unit of packed cells.. Hospital Course Hospital Course: Patient was admitted to [facility] on telemetry. He was transfused 2 units packed red blood cells. He felt much improved after the blood. ,saw the patient in consult. He feels patient is at his baseline. It is safe for discharge. He was noted to also have a urinary tract infection. Urinalysis was positive with nitrates. Pending urine culture shows gram-negative rods. He will be placed on oral antibiotics at discharge. He will need follow-up with his primary care provider. Physical Exam Vital Signs: Temp Pulse Resp BP Pulse Ox 98.2 F 89 18 132/66 H 96 11/30/16 14:09 11/30/16 15:08 11/30/16 15:08 11/30/16 14:09 11/30/16 15:08 Intake & Output 11/29/16 11/30/16 12/01/16 06:59 06:59 06:59 Intake Total 885 300 Output Total 200 Balance 685 300 Weight 137.5 kg General appearance: PRESENT: no acute distress, morbidly obese, well-developed, well-nourished Head exam: PRESENT: atraumatic, normocephalic Eye exam: PRESENT: conjunctiva pale, EOMI, PERRLA. ABSENT: scleral icterus Ear exam: PRESENT: normal external ear exam Mouth exam: PRESENT: moist, tongue midline Teeth exam: PRESENT: edentulous Neck exam: ABSENT: carotid bruit, JVD, lymphadenopathy, thyromegaly Respiratory exam: PRESENT: clear to auscultation inés. ABSENT: rales, rhonchi, wheezes Pulses: PRESENT: normal carotid pulses, normal radial pulses GI/Abdominal exam: PRESENT: normal bowel sounds, soft. ABSENT: distended, guarding, mass, organolmegaly, rebound, tenderness Rectal exam: PRESENT: deferred Extremities exam: PRESENT: +1 edema - Lower extremities Musculoskeletal exam: PRESENT: ambulatory, full ROM, normal inspection Neurological exam: PRESENT: alert, awake, oriented to person, oriented to place , oriented to time, oriented to situation, CN II-XII grossly intact. ABSENT: motor sensory deficit Psychiatric exam: PRESENT: appropriate affect, normal mood. ABSENT: homicidal ideation, suicidal ideation Skin exam: PRESENT: dry, intact, warm, other - Multiple old ecchymosis secondary to thrombocytopenia and extremities. ABSENT: cyanosis, rash Results Laboratory Results: 11/30/16 09:38 11/30/16 09:38 11/30/16 11/30/16 11/30/16 09:38 09:38 09:38 WBC 20.3 H RBC 2.53 L Hgb 7.7 L Hct 22.3 L MCV 88 MCH 30.5 MCHC 34.6 RDW 15.5 H Plt Count 23 L* Seg Neutrophils % Not Reportable Lymphocytes % Not Reportable Monocytes % Not Reportable Eosinophils % Not Reportable Basophils % Not Reportable Absolute Neutrophils Not Reportable Absolute Lymphocytes Not Reportable Absolute Monocytes Not Reportable Absolute Eosinophils Not Reportable Absolute Basophils Not Reportable Sodium 140.5 Potassium 3.5 L Chloride 99 Carbon Dioxide 31 H Anion Gap 11 BUN 28 H Creatinine 0.90 Est GFR ( Amer) > 60 Est GFR (Non-Af Amer) > 60 Glucose 197 H Calcium 8.4 Magnesium 2.0 TSH 3.61 Impressions: Chest X-Ray 11/29/16 19:37 IMPRESSION: NO ACUTE RADIOGRAPHIC FINDING IN THE CHEST. NO SIGNIFICANT CHANGE FROM PRIOR STUDY. Chest/Abdomen CTA 11/29/16 21:04 IMPRESSION: NO PULMONARY EMBOLI. NO ACUTE AORTIC INJURY. TRACE LEFT PLEURAL EFFUSION. MARKED SPLENOMEGALY WITH AREAS OF LOW ATTENUATION CONCERNING FOR INFARCTION. CORRELATE WITH PHYSICAL EXAM FOR EVIDENCE OF LEFT UPPER QUADRANT PAIN. Qualifiers PATEINT BEING DISCHARGED WITH ANY OF THE FOLLOWING DIAGNOSIS?: No Plan Discharge Plan: Discharged home with family. Follow-up with oncology tomorrow as previously scheduled. Time Spent: Less than 30 Minutes
--- NOTE | 2016-11-30 16:48 | EKG REPORT ---
SEVERITY:- BORDERLINE ECG - SINUS RHYTHM VENTRICULAR PREMATURE COMPLEX BORDERLINE PROLONGED QT INTERVAL : Confirmed by: Alejandrina Waller MD 30-Nov-2016 16:47:30
[2016-11-30] MEDS ORDERED: VANCOMYCIN HCL 1,500 MG in DEXTROSE 5%-WATER 250 ML IV SCH (18:00)
[2016-11-30] MEDS ORDERED: TAMSULOSIN HCL 0.4 MG CAP.SR.24H PO SCH (22:00)
[2016-11-30] MEDS ORDERED: LATANOPROST 0.005% OPH SOLN 2.5 ML OU SCH (22:00)
--- NOTE | 2016-12-01 13:57 | CONSULTATION REPORT E ---
Consultation Report NAME: ROSMERY PARRISH : 1935 AGE: 81Y DATE: 11/30/2016 322 A TO: ORQUIDEA ARAMBULA M.D. FROM: JOSE RAND M.D. Requesting Physician REASON FOR CONSULTATION: Splenomegaly, massively enlarged spleen for opinion of a possible critical management. The gentleman, 81-year-old, has been admitted for his management of his anemia. He has a significant past medical history of myelodysplastic syndrome. For this reason, he has bone marrow issues and anemia and requiring recurrent transfusions. The patient admitted for the same reason at this time. The patient does not complain much of any abdominal pain, except for tiredness and weakness. He has no specific abdominal complaints. No history of any GI bleeding, no history of any tate blood in the rectum. No hematemesis. PAST MEDICAL HISTORY: 1. History of obesity. 2. History of a myelodysplastic syndrome. 3. History of recurrent anemia requiring transfusions, 4. Arthritis. 5. Hypertension. 6. . REVIEW OF SYSTEMS: As per examination. PHYSICAL EXAMINATION: GENERAL: He is an 81-year-old elderly gentleman. Very pleasant gentleman, not in any acute distress. He appears to be comfortable VITAL SIGNS: Blood pressure around 110-120 systolic. Heart rate is around 80s. HEENT: Mucous membranes pale. Normocephalic. Head and neck examination otherwise no lymphadenopathy, no thyromegaly. RESPIRATORY: Both lungs, good air entry. Clear to auscultation. CARDIOVASCULAR: Both heart sounds are regular, no murmurs. ABDOMEN: Soft abdomen. The spleen could be palpable on the left upper quadrant area. No palpable hernia. No abnormal masses. No other masses. EXTREMITIES: Warm and well perfused. IMPRESSION: Overall, the patient has a myelodysplastic syndrome, masses, splenomegaly, which is noted on the CT scan. Basically, consistent with the myelodysplastic syndrome history which . PLAN: For this given his oncological conditions, splenectomy is not a necessity at this point because splenomegaly expected to be there, unless the patient develops any complications due to splenomegaly, which could be a spontaneous splenic rupture or splenic clearing, then will request splenectomy but prophylactically removing the spleen is not a good option given his morbidity for . For this reason, I gave a clear instruction to the patient. When he is physically walking or active always try to avoid any abdominal blunt trauma and also follow up as needed. Thank your for allowing me to participate in the care of this patient. DICTATING PHYSICIAN: ORQUIDEA ARAMBULA M.D. [id number] PHY#: [id number] ID: [id number] JOB#: [id number] ACCT: [id number] cc:ORQUIDEA ARAMBULA M.D. >
[2016-12-01 16:23] LABS: PATH REVIEW PATHOLOGIST REVIEWED
[2016-12-01 16:26] LABS: PATH REVIEW PATHOLOGIST REVIEWED
== END 2016-11-30 15:00 | disposition home or self-care (01) | DRG 841 ==
LOC: ER 19:35 → EH 21:32 → UNDOADMIN 21:32 → EH 23:00 → 3W 11-30 00:41
PROVIDERS: ADMIT Family Medicine; ATTEND Family Medicine
PROC: 30233P1 Transfusion of Nonautologous Frozen Red Cells into Peripheral Vein, Percutaneous Approach (ICD-10-PCS; principal; 2016-11-29)
DX: C90.00 Multiple myeloma not having achieved remission (principal); N39.0 Urinary tract infection, site not specified; Z68.41 Body mass index [BMI] 40.0-44.9, adult; D63.0 Anemia in neoplastic disease; T50.6X5A Adverse effect of antidotes and chelating agents, initial encounter; D46.9 Myelodysplastic syndrome, unspecified; E83.111 Hemochromatosis due to repeated red blood cell transfusions; E87.6 Hypokalemia; E83.42 Hypomagnesemia; J45.909 Unspecified asthma, uncomplicated; D69.59 Other secondary thrombocytopenia; M19.90 Unspecified osteoarthritis, unspecified site; I10 Essential (primary) hypertension; R16.1 Splenomegaly, not elsewhere classified; G47.30 Sleep apnea, unspecified; R06.02 Shortness of breath; E03.9 Hypothyroidism, unspecified; E66.01 Morbid (severe) obesity due to excess calories; B96.89 Other specified bacterial agents as the cause of diseases classified elsewhere; Z79.899 Other long term (current) drug therapy; Z85.46 Personal history of malignant neoplasm of prostate; Z92.3 Personal history of irradiation; Z85.820 Personal history of malignant melanoma of skin; Z66 Do not resuscitate
CPT/HCPCS: 36415; 36430; 71010; 71275; 80048; 80053; 81001; 82550; 82553; 82607; 82728; 82746; 83540; 83550; 83605; 83735; 83880; 84443; 84466; 84484; 85025; 85045; 86850; 86900; 86901; 86920; 87040; 87086; 87088; 87186; 93005; 93010; 99285; J0692; J3370; J3475; J3490; J7050; P9016

== ENCOUNTER 2017-05-09 21:52 | Emergency (ER) | payer MEDICARE, BC ==
--- NOTE | 2017-05-09 22:10 | ER Document Report ---
ED General - General Stated Complaint: DIFFICULTY BREATHING Time Seen by Provider: 05/09/17 22:07 Cannot obtain history due to: Unstable vital signs Notes: Patient is an 81-year-old male, chronically ill with multiple medical conditions including multiple myeloma, myelodysplastic disorder requiring almost weekly packed red blood cells transfusion as well as a history of hemochromatosis secondary to excessive transfusions, asthma, hypertension, hyperlipidemia, morbid obesity, who also was recently hospitalized in [place] for 3 weeks and at that time had a thoracentesis of the left lung draining more than 2000 mL's of fluid who presents with acute onset of shortness of breath. Patient reports over the past 12-24 hours he has had progressive worsening of shortness of breath. States any form of exertion worsens the shortness of breath. Nothing improves the shortness of breath. He has had similar symptoms in the past when he has had large pleural effusions. He denies a known history of CHF but does currently take Lasix 40 mg twice daily apparently for lower extremity edema as well as pulmonary edema. He has not seen his primary care doctor regarding today's concerns. He denies any fever, vomiting, diarrhea, chest pain, or syncope. He does arrive by EMS in acute respiratory distress which does limit initial history taking. TRAVEL OUTSIDE OF THE [place] IN LAST 30 DAYS: No - Related Data Allergies/Adverse Reactions: No Known Allergies Allergy (Unverified 08/08/11 04:03) Past Medical History - General Information source: Patient, Relative - Social History Smoking Status: Former Smoker Frequency of alcohol use: None Drug Abuse: None Lives with: Family Family History: Malignancy - Past Medical History Cardiac Medical History: Reports: Hx Hypertension Denies: Hx Congestive Heart Failure, Hx DVT, Hx Heart Attack, Hx Hypercholesterolemia, Hx Pulmonary Embolism Pulmonary Medical History: Reports: Hx Asthma - A LITTLE BIT OF IT, Hx Pneumonia , Hx Sleep Apnea - 4 liters O2; variable pressure setting, per pt., Hx Tuberculosis - History of Denies: Hx COPD Neurological Medical History: Denies: Hx Cerebrovascular Accident, Hx Seizures Endocrine Medical History: Reports: Hx Hypothyroidism. Denies: Hx Diabetes Mellitus Type 1, Hx Diabetes Mellitus Type 2, Hx Hyperthyroidism Malignancy Medical History: Reports Hx Skin Cancer - Status post excision of melanoma from his forehead. GI Medical History: Denies: Hx Cirrhosis, Hx Gastroesophageal Reflux Disease, Hx Hepatitis, Hx Hiatal Hernia, Hx Ulcer Musculoskeltal Medical History: Reports Hx Arthritis Skin Medical History: Denies Hx Eczema, Denies Hx Psoriasis Psychiatric Medical History: Denies: Hx Depression Infectious Medical History: Denies: Hx C-Diff, Hx Hepatitis, Hx MRSA Past Surgical History: Reports: Other - Excision of melanoma from his forehead. Denies: Hx Open Heart Surgery, Hx Pacemaker - Immunizations Hx Diphtheria, Pertussis, Tetanus Vaccination: Yes - 05/10/05 Hx Pneumococcal Vaccination: 05/10/05 Review of Systems - Review of Systems Notes: Constitutional: Negative for fever. HENT: Negative for sore throat. Eyes: Negative for visual changes. Cardiovascular: Negative for chest pain. Respiratory: Positive for shortness of breath. Gastrointestinal: Negative for abdominal pain, vomiting or diarrhea. Genitourinary: Negative for dysuria. Musculoskeletal: Negative for back pain. Skin: Negative for rash. Neurological: Negative for headaches, weakness or numbness. 10 point ROS negative except as marked above and in HPI. Physical Exam - Vital signs Vitals: Pulse Ox 95 05/09/17 21:53 Interpretation: Tachycardic, Hypoxic, Tachypneic Notes: PHYSICAL EXAMINATION: GENERAL: Appears acutely unwell, and respiratory distress HEAD: Atraumatic, normocephalic. EYES: Pupils equal round and reactive to light, extraocular movements intact, sclera anicteric, conjunctiva are normal. ENT: nares patent, oropharynx clear without exudates. Moderately dry mucous membranes. NECK: Normal range of motion, supple without lymphadenopathy LUNGS: Globally diminished breath sounds much worse on the left with almost complete absence of breath sounds at the left base. Patient is in respiratory distress, respiratory rate at 30 breaths per minute. Scattered rales throughout. HEART: Regular tachycardia without murmurs ABDOMEN: Soft, nontender, normoactive bowel sounds. No guarding, no rebound. No masses appreciated. EXTREMITIES: Normal range of motion, 4+ pitting edema in the bilateral lower extremities that is equal and symmetric. No cyanosis. NEUROLOGICAL: No focal neurological deficits. Moves all extremities spontaneously and on command. PSYCH: Normal mood, normal affect. SKIN: Warm, Dry, normal turgor, diffuse petechiae Course - Re-evaluation Re-evalutation: 05/09/17 22:08 Patient presents in respiratory distress saturating 82% on room air, immediately transitioned to BiPAP at time of arrival. Initial respiratory rate was in the upper 30s but after placement of BiPAP patient did have some improvement of his work of breathing, decreasing to 28 breaths per minute approximately 5 minutes after placement of BiPAP. Patient had a thoracentesis the left lung with removal of 2000 mL's of fluid 3 weeks ago at [facility] and I am concerned that this has recurred as he does have very diminished breath sounds on the left side particularly at the base. He otherwise has scattered rales in all lung abbott. He does have 4+ pitting edema in the bilateral lower extremities although he denies a history of congestive heart failure. It does appear that he is having fluid retention. He has no history of COPD and is not wheezing to suggest an obstructive pathology on examination. His pressures are not significantly elevated to suggest flash pulmonary edema. Labs, chest x-ray, and reassess frequently. 05/09/17 23:38 Patient has had marked improvement of his work of breathing on BiPAP, now breathing at 22 breaths per minute saturating 98-100% on 35% FiO2. Chest x-ray does show a large left pleural effusion but also shows bilateral pulmonary edema. Given patient's 4+ pitting edema, elevated proBNP, and findings consistent with vascular congestion I do suspect that his underlying congestive heart failure has not yet been diagnosed. He does currently take 40 mg of Lasix twice daily at home and this was just increased last week but obviously has not been successful in preventing worsening of his fluid retention. He has been given a dose of 80 mg of IV Lasix here in the emergency department. Given that an acute infectious etiology cannot be excluded based on the preponderance of fluid collection on the left, he will be started on IV antibiotics with a coverage for hospital-acquired pneumonia with Zosyn and vancomycin. Patient's hemoglobin here is also low at 6.9 05/09/17 23:58 We unfortunately do not have either oncology or pulmonology on to assist with the care of this patient. I will therefore attempt to transfer the patient. They are requesting transfer to [facility] but this is not a hospital that we typically transfer to. Will see if we can arrange this otherwise will plan transfer to [facility] 05/10/17 00:49 I discussed the case with Dr. Vincent who has accepted the patient in transfer. They do not immediately have a bed available but are hoping to have one after 6: 30 AM. 05/10/17 02:45 Patient's work of breathing continues to be much improved. Awaiting transfer. - Vital Signs Vital signs: Temp Pulse Resp BP Pulse Ox 97.9 F 26 H 135/72 H 96 05/10/17 01:23 05/09/17 23:31 05/09/17 23:31 05/09/17 23:31 - Laboratory Result Diagrams: 05/09/17 22:00 05/09/17 22:00 Laboratory results interpreted by me: 05/09/17 05/09/17 05/09/17 22:00 22:00 22:00 WBC 75.9 H* RBC 2.37 L Hgb 6.8 L Hct 21.1 L RDW 17.5 H Plt Count 9 L* Band Neutrophils % 16 H Lymphocytes % (Manual) 2 L Monocytes % (Manual) 21 H Metamyelocytes % 8 H Myelocytes % 5 H Promyelocytes % 3 H Immature Leukocytes % 3 H Abs Neuts (Manual) 56.2 H Abs Monocytes (Manual) 15.9 H Carbon Dioxide 31 H BUN 24 H Glucose 290 H NT-Pro-B Natriuret Pep 3120 H Albumin 3.1 L Crossmatch 05/10/17 00:38 WBC RBC Hgb Hct RDW Plt Count Band Neutrophils % Lymphocytes % (Manual) Monocytes % (Manual) Metamyelocytes % Myelocytes % Promyelocytes % Immature Leukocytes % Abs Neuts (Manual) Abs Monocytes (Manual) Carbon Dioxide BUN Glucose NT-Pro-B Natriuret Pep Albumin Crossmatch See Detail - Diagnostic Test Radiology reviewed: Image reviewed, Reports reviewed Radiology results interpreted by me: 05/09/17 23:58 Chest x-ray: Large left pleural effusion and bilateral pulmonary edema - EKG Interpretation by Me Additional EKG results interpreted by me: 05/10/17 02:46 Sinus tachycardia. Rate 104. Intermittent PVCs. QTC is 474. Critical Care Note - Critical Care Note Total time excluding time spent on procedures (mins): 47 Comments: Critical care time spent obtaining history from patient or surrogate, discussions with consultants, development of treatment plan with patient or surrogate, evaluation of patient's response to treatment, examination of patient , ordering and performing treatments and interventions, ordering and review of laboratory studies, re-evaluation of patient's condition, ordering and review of radiographic studies and review of old charts Discharge - Discharge Clinical Impression: Respiratory distress, Hyperglycemia, MDS (myelodysplastic syndrome), Thrombocytopenia, DNR (do not resuscitate), Morbid obesity with BMI of 40.0-44.9 , adult Anemia Qualifiers: Anemia type: unspecified type Qualified Code(s): D64.9 - Anemia, unspecified Multiple myeloma Qualifiers: Multiple myeloma remission status: not in remission Qualified Code(s): C90.00 - Multiple myeloma not having achieved remission Condition: Fair Disposition: [facility] Referrals: STEFAN RANGEL MD [Primary Care Provider] - Follow up as needed
[2017-05-09 22:37] LABS: HEMATOCRIT 21.1 % (37.9-51.0); HGB HCT DIFFERENCE -0.7; MEAN CORPUSCULAR HEMOGLOBIN 28.8 pg (27.0-33.4); MEAN CORPUSCULAR HGB CONC 32.5 g/dL (32.0-36.0); MEAN CORPUSCULAR VOLUME 89 fl (80-97); RED BLOOD COUNT 2.37 10^6/uL (4.35-5.55); RED CELL DISTRIBUTION WIDTH 17.5 % (11.5-14.0)
[2017-05-09 22:50] LABS: ALANINE AMINOTRANSFERASE 58 U/L (21-72); ALBUMIN 3.1 g/dL (3.5-5.0); ALKALINE PHOSPHATASE 92 U/L (38-126); ANION GAP 8 (5-19); ASPARTATE AMINO TRANSFERASE 32 U/L (17-59); BILIRUBIN,DIRECT 0.3 mg/dL (0.0-0.4); BILIRUBIN,TOTAL 0.6 mg/dL (0.2-1.3); BLOOD UREA NITROGEN 24 mg/dL (7-20); CALCIUM 8.7 mg/dL (8.4-10.2); CARBON DIOXIDE 31 mmol/L (22-30); CHLORIDE 102 mmol/L (98-107); CREATININE RESULT 0.82 mg/dL (0.52-1.25); GLUCOSE 290 mg/dL (75-110); POTASSIUM 4.2 mmol/L (3.6-5.0); TOTAL PROTEIN 6.5 g/dL (6.3-8.2)
[2017-05-09 23:02] LABS: BASOPHILS % (MANUAL) 0 % (0-2); EOSINOPHILS % (MANUAL) 0 % (0-6); LYMPHOCYTES % (MANUAL) 2 % (13-45); TOTAL CELLS COUNTED 100; TROPONIN I < 0.012 ng/mL
--- NOTE | 2017-05-09 23:04 | RADIOLOGY REPORT (SQ) ---
EXAM DESCRIPTION: CHEST SINGLE VIEW COMPLETED DATE/TIME: 05/09/2017 10:43 pm REASON FOR STUDY: difficulty breathing COMPARISON: 11/29/2016 EXAM PARAMETERS: NUMBER OF VIEWS: One view. TECHNIQUE: Single frontal radiographic view of the chest acquired. RADIATION DOSE: NA LIMITATIONS: None. FINDINGS: LUNGS AND PLEURA: Bilateral lower lobe airspace opacities with a left-sided pleural effusi on. No pneumothorax. Right mid lung scarring. Left mid lung platelike atelectasis. MEDIASTINUM AND HILAR STRUCTURES: Stable. HEART AND VASCULAR STRUCTURES: Cardiomegaly with central vascular prominence and indistinctness. . BONES: No acute findings. HARDWARE: None in the chest. OTHER: No other significant finding. IMPRESSION: Findings consistent with positive fluid balance/ CHF. Superimposed infectious process i s not excluded. TECHNICAL DOCUMENTATION: JOB ID: [id number]
[2017-05-09] MEDS ORDERED: FUROSEMIDE INJ/PF 40 MG/4 ML SDV IV ONE ×2 (23:07→23:35)
[2017-05-09 23:09] LABS: ANISOCYTOSIS 1+; POIKILOCYTOSIS SLIGHT; POLYCHROMASIA SLIGHT
[2017-05-09 23:10] LABS: OVALOCYTES SLIGHT; STOMATOCYTES SLIGHT; TARGET CELLS SLIGHT; TEAR DROP CELLS SLIGHT
[2017-05-09 23:14] LABS: HEMOGLOBIN 6.8 g/dL (13.5-17.0); WHITE BLOOD COUNT 75.9 10^3/uL (4.0-10.5)
[2017-05-09 23:15] LABS: BAND NEUTROPHILS % (MANUAL) 16 % (3-5)
[2017-05-09] MEDS ORDERED: NORMAL SALINE 250 ML IV PRN (23:21)
[2017-05-09] MEDS ORDERED: VANCOMYCIN HCL INJ 1000 MG VIAL IV ONE (23:36)
[2017-05-09] MEDS ORDERED: PIPERACILLIN/TAZOBACTAM 3.375 GM VIAL IV ONE (23:36)
[2017-05-10] MEDS ORDERED: ALPRAZOLAM 0.25 MG TABLET PO ONE (08:12)
[2017-05-10 09:22] VITALS: BP 157/85
--- NOTE | 2017-05-10 09:44 | ER Document Report ---
Doctor's Note Notes: 05/10/17 09:43 pt stable, transfer is here
--- NOTE | 2017-05-10 12:58 | EKG REPORT ---
SEVERITY:- ABNORMAL ECG - SINUS TACHYCARDIA MULTIPLE VENTRICULAR PREMATURE COMPLEXES ABNORMAL T, CONSIDER ISCHEMIA, LATERAL LEADS : Confirmed by: Sussy Miguel 10-May-2017 12:58:10
[2017-05-11 16:40] LABS: PATH REVIEW PATHOLOGIST REVIEWED
== END 2017-05-10 09:50 | disposition short-term general hospital (02) ==
LOC: ER 21:52
DX: R06.00 Dyspnea, unspecified (principal); R73.9 Hyperglycemia, unspecified; D46.9 Myelodysplastic syndrome, unspecified; D69.6 Thrombocytopenia, unspecified; E66.01 Morbid (severe) obesity due to excess calories; Z68.41 Body mass index [BMI] 40.0-44.9, adult; R06.02 Shortness of breath; C90.00 Multiple myeloma not having achieved remission; E83.111 Hemochromatosis due to repeated red blood cell transfusions; Z87.891 Personal history of nicotine dependence
CPT/HCPCS: 93005; 99291; 51702; 96374; 96375; 86900; 86901; 36415; 36430; 86850; 85025; 80053; 84484; 86920; 83880; 71010; 93010; 94660 ×2; P9016; A9270; J1940; J3370; J2543